=== PATIENT | female | born 1935 | race Caucasian/White ===

== ENCOUNTER 2018-05-02 16:27 | Inpatient (IN) | payer MEDICARE, BC ==
[~2018-05-02] VITALS: Ht 165.1 cm; Wt 98.9 kg
--- NOTE | ~2018-05-02 | PN ---
PATIENT:SUAD MENDEZ MEDICAL RECORD: [id number] LOCATION:TEE Pacheco112 ADMISSION DATE: 05/02/18 PROGRESS NOTE DATE OF SERVICE: 05/10/2018 SUBJECTIVE: The patient's case was discussed with staff. She has no new complaint. OBJECTIVE: The patient is in good behavioral control with limited insight about her condition. She generally tolerates her medicines well. ASSESSMENT: No change in diagnoses. PLAN: The patient is awaiting word from [facility] [place] care placement. Once the approval is received, she will be transitioned to [facility]. TRANSINT:[id number] Voice Confirmation ID: [id number] DOCUMENT ID: [id number] CATALINA STROUD MD at 1617 CC: [id number] DICTATION DATE: 05/10/18 1446 BEZEL CUTTER: 05/10/18 1534 ADM IN [place] [id number] [place] [id number]
--- NOTE | ~2018-05-02 | PN ---
PATIENT:SUAD MENDEZ MEDICAL RECORD: [id number] LOCATION:TEE Pacheco112 ADMISSION DATE: 05/02/18 PROGRESS NOTE DATE OF SERVICE: 05/16/2018 SUBJECTIVE: The patient's case was discussed with staff. She has no new complaint. OBJECTIVE: The patient is in good behavioral control with limited insight about her condition. She does tolerate her medicines well. ASSESSMENT: No change in diagnoses. PLAN: Current medicines have been reviewed and will be maintained. I anticipate the patient can be transitioned to [facility] as soon as they approve her and arrange transportation. Her long-term prognosis is guarded. TRANSINT:[id number] Voice Confirmation ID: [id number] DOCUMENT ID: [id number] CATALINA STROUD MD at 1012 CC: [id number] DICTATION DATE: 05/16/18 1345 FUR MACHINE OPERATOR: 05/16/18 1350 ADM IN [place] [id number] [place] [address]
--- NOTE | ~2018-05-02 | PN ---
PATIENT:SUAD MENDEZ MEDICAL RECORD: [id number] LOCATION:TEE Pacheco112 ADMISSION DATE: 05/02/18 PROGRESS NOTE DATE OF SERVICE: 05/16/2018 SUBJECTIVE: The patient's case was discussed with staff. She has no new complaint. OBJECTIVE: The patient is in good behavioral control with limited insight about her condition. She does tolerate her medicines well. Eye contact is fair. Concentration is fair. ASSESSMENT: No change in diagnoses. PLAN: Supportive and educational interventions were made. Long-term prognosis is guarded. TRANSINT:[id number] Voice Confirmation ID: [id number] DOCUMENT ID: [id number] CATALINA STROUD MD at 1012 CC: [id number] DICTATION DATE: 05/16/18 1336 SENIOR BI DEVELOPER: 05/16/18 1349 ADM IN [facility] [address] [place] [address]
--- NOTE | ~2018-05-02 | PN ---
PATIENT:SUAD MENDEZ MEDICAL RECORD: [id number] LOCATION:TEE FonsecaVamsi112 ADMISSION DATE: 05/02/18 PROGRESS NOTE DATE OF SERVICE: 05/18/2018 SUBJECTIVE: The patient's case was discussed with staff. She has no new complaint. OBJECTIVE: The patient is in good behavioral control with limited insight about her condition. She does tolerate her medicines well. ASSESSMENT: No change in diagnoses. PLAN: Current medicines have been reviewed and will be maintained. Long-term prognosis is guarded. Brief supportive and educational interventions were made. TRANSINT:[id number] Voice Confirmation ID: [id number] DOCUMENT ID: [id number] CATALINA STROUD MD at 1008 CC: [id number] DICTATION DATE: 05/18/18 1515 TEACHER EARLY CHILDHOOD DEVELOPMENT: 05/18/18 1545 ADM IN [place] [id number] [place] [address]
--- NOTE | ~2018-05-02 | PN ---
PATIENT:SUAD MENDEZ MEDICAL RECORD: [id number] LOCATION:TEE Morrell ADMISSION DATE: 05/02/18 PROGRESS NOTE DATE OF SERVICE: 05/07/2018 SUBJECTIVE: The patient's case was discussed with staff. She has no new complaint. OBJECTIVE: The patient is oriented almost completely. She is mildly mistaken about the date. She has been in good behavioral control. She was tested by Dr. Janee Sheridan and scored 17/30 on her dementia scale. This places her in the ejeismci-uk-girvebov range. She has some preservation of her verbal skills, which is causing her to appear higher functioning than she is. Certainly, she does have dementia. This was suspected on bedside exam, which is why Dr. Sheridan was tested. I have discussed the diagnosis with her. ASSESSMENT: Senile dementia of the Alzheimer's type. PLAN: The patient will be started on Aricept for its memory-enhancing properties. She is in need of 23-txwa-k-day supervision. Given her pulmonary disease and dementia, I would estimate that the detention is the least restrictive environment that can meet her needs. TRANSINT:[id number] Voice Confirmation ID: [id number] DOCUMENT ID: [id number] CATALINA STROUD MD at 1452 CC: [id number] DICTATION DATE: 05/07/18 1457 MANAGER SUPPLY: 05/07/18 1547 ADM IN [place] [id number] [place] [address]
--- NOTE | ~2018-05-02 | PSY ---
PATIENT NAME:SUAD MENDEZ MEDICAL RECORD: [id number] : 35 LOCATION:TEE Morrell4 ADMISSION DATE: 05/02/18 ACCOUNT: [id number] PSYCHIATRIC EVALUATION DATE OF EVALUATION: 05/03/18 IDENTIFYING DATA: The patient is 83 years old and she is referred to us by a [facility] in [place]. The patient apparently has been a resident there for some time. CHIEF COMPLAINT: None. HISTORY OF PRESENT ILLNESS: The patient has a great deal of anxiety. She says that she cannot go into her room. She thinks she is going to . She has become agitated and has been throwing herself on the floor. According to the staff, they say it is deliberate. The patient strongly denies this. The [facility] physician wanted her admitted here and he is known to this unit and is familiar with what we do, so he must certainly think it is appropriate. She denies that she is depressed, but she endorses numerous neurovegetative depressive symptoms. She denies that she has any memory impairment, but does have some mild abnormalities noted on her mental status examination. PAST MEDICAL HISTORY: Significant for neuropathy, hypertension, hypercholesterolemia, COPD. PAST PSYCHIATRIC HISTORY: Significant for long-standing problems with anxiety and depression, for which the patient is taking a large amount of benzodiazepine. FAMILY HISTORY: Negative for psychiatric disease by the patient's report. ALLERGIES: No known drug allergies. CURRENT MEDICATIONS: Include Senokot, Nexium, sodium chloride tablets, Lasix, aspirin, Zocor, Cozaar, melatonin, Carafate, Zofran, Antivert, Ultram, Ambien, Zoloft, Neurontin, Voltaren, Valium, albuterol updrafts, Levsin, and Ventolin. SOCIAL HISTORY: The patient is . She has 2 adult children. One of her grandchildren was killed at age 12. She denies history of drug, alcohol, or tobacco use. She was a homemaker and a housewife. She functioned reasonably well socially and occupationally. She currently lives in a [facility] in [place]. MENTAL STATUS EXAMINATION: The patient is awake, alert, and oriented to person and place. She does not know why she is here and she is mistaken about the date, but she says the date is 1819 instead of 2018. She also thinks the month is March when it is actually May 03. She otherwise has a mood that is near euthymic, an affect that is generally appropriate, and thought processes that are circumstantial. Her memory, concentration, and abstraction abilities are mildly impaired and she denies any active intent to harm herself or others as well as overt psychotic symptoms. ASSETS: Stable living environment. LIABILITIES: Lack of insight about her condition. DIAGNOSTIC IMPRESSION: AXIS I: Major depression, moderate severity, without psychotic features. Generalized anxiety disorder. Probable early stages dementia, perhaps moderate stages. AXIS II: Deferred. AXIS III: Hypercholesterolemia, hypertension, COPD. AXIS IV: Moderate stressors. AXIS V: Global assessment of functioning is 38. PLAN: At this time, the patient is admitted to the hospital for comprehensive medical, psychological, and social evaluation. She will be treated with both mood stabilizing and memory enhancing medications. Her long-term prognosis is guarded. I anticipate she can return to the [facility] in [place] once medically stable. TRANSINT:[id number] Voice Confirmation ID: [id number] DOCUMENT ID: [id number] CATALINA STROUD MD at 1212 CC: [id number] DICTATION DATE: 05/03/18 1256 CONTRACT ENGINEER: 05/03/18 1319 [facility] IN [facility] [address] [place] [id number]
--- NOTE | ~2018-05-02 | PN ---
PATIENT:SUAD MENDEZ MEDICAL RECORD: [id number] LOCATION:TEE Morrell ADMISSION DATE: 05/02/18 PROGRESS NOTE DATE OF SERVICE: 05/11/2018 SUBJECTIVE: No new complaint is offered. OBJECTIVE: The patient has been doing reasonably well. At the present time, staff is waiting on approval from [facility] and [facility] prior to transfer back to [facility]. On exam, the patient's mood is pleasant. She makes fairly good eye contact. Affect is somewhat shallow. Speech is simple in form and content. Content of thought is negative for overt psychosis. No suicidal ideation. Sensorium shows no change. ASSESSMENT: No change in diagnosis. PLAN: 1. Continue all current medications. 2. Continue supportive therapy. TRANSINT:[id number] Voice Confirmation ID: [id number] DOCUMENT ID: [id number] VON DOBBINS III, MD at 1959 CC: [id number] DICTATION DATE: 05/11/18 111 PIPE FOREMAN: 05/11/18 1119 ADM IN [place] [id number] [place] [id number]
--- NOTE | ~2018-05-02 | PN ---
PATIENT:SUAD MENDEZ MEDICAL RECORD: [id number] LOCATION:TEE Pacheco112 ADMISSION DATE: 05/02/18 PROGRESS NOTE DATE OF SERVICE: 05/21/2018 SUBJECTIVE: The patient's case was discussed with staff. She has no new complaint. OBJECTIVE: The patient is in good behavioral control with limited insight about her condition. She tolerates her medicines well. ASSESSMENT: No change in diagnoses. PLAN: The patient will be transitioned out of the hospital today. She is going to go to [facility]. Her long-term prognosis is guarded. Brief supportive and educational interventions were made. TRANSINT:[id number] Voice Confirmation ID: [id number] DOCUMENT ID: [id number] CATALINA STROUD MD at 1323 CC: [id number] DICTATION DATE: 05/21/18 1405 MARKET RESEARCH INTERVIEWER: 05/21/18 1421 DIS IN 05/21/18 [place] [id number] [place] [address]
--- NOTE | ~2018-05-02 | PN ---
PATIENT:SUAD MENDEZ MEDICAL RECORD: [id number] LOCATION:TEE Pacheco112 ADMISSION DATE: 05/02/18 PROGRESS NOTE DATE OF SERVICE: 05/09/2018 SUBJECTIVE: The patient's case was discussed with staff. She has no new complaint. OBJECTIVE: The patient is in good behavioral control with limited insight about her condition. She has no thoughts of harming herself or others. ASSESSMENT: No change in diagnoses. PLAN: Current medicines and therapies have been reviewed and will be maintained. Her long-term prognosis is guarded. TRANSINT:[id number] Voice Confirmation ID: [id number] DOCUMENT ID: [id number] CATALINA STROUD MD at 1438 CC: [id number] DICTATION DATE: 05/09/18 1358 PAYROLL ACCOUNTANT: 05/09/18 1417 ADM IN [place] [id number] [place] [id number]
--- NOTE | ~2018-05-02 | PN ---
PATIENT:SUAD MENDEZ MEDICAL RECORD: [id number] LOCATION:TEE Pacheco112 ADMISSION DATE: 05/02/18 PROGRESS NOTE DATE OF SERVICE: 05/05/2018 SUBJECTIVE: The patient's case was discussed with staff. She has no new complaint. OBJECTIVE: The patient has been in good behavioral control. She has had some discomfort, for which she has required tramadol. She comes to us taking a large dose of Valium that she has been on for a long time. When I discussed changing that or reducing it, she becomes very upset saying that she has had the medicine for a very long time and that she must have it. She has had some recent trouble with anxiety indicating it is not really working, but that seems to have changed and she is more comfortable now. I do not approve of what she is taking, but I am going to let it go for the time being based on concerns that she is fearful and frightened, that something bad will happen if it is changed or reduced, and even though it is far from ideal, the patient is in a structured environment where she has no free access to the medication. TRANSINT:[id number] Voice Confirmation ID: [id number] DOCUMENT ID: [id number] CATALINA STROUD MD at 1445 CC: [id number] DICTATION DATE: 05/05/18 0959 STATE ARCHIVIST: 05/05/18 1155 ADM IN [place] [id number] [place] [address]
--- NOTE | ~2018-05-02 | PN ---
PATIENT:SUAD MENDEZ MEDICAL RECORD: [id number] LOCATION:TEE Pacheco112 ADMISSION DATE: 05/02/18 PROGRESS NOTE DATE OF SERVICE: 05/14/2018 SUBJECTIVE: The patient's case was discussed with staff. She has no new complaint. OBJECTIVE: The patient is in good behavioral control with limited insight about her condition. She tolerates her medicines well. ASSESSMENT: No change in diagnoses. PLAN: Supportive and educational interventions were made. The patient's medications have been reviewed. I am going to increase the dose of her Aricept to 10 mg at bedtime. TRANSINT:[id number] Voice Confirmation ID: [id number] DOCUMENT ID: [id number] CATALINA STROUD MD at 1501 CC: [id number] DICTATION DATE: 05/14/18 1625 RUBBER GOODS SUPERVISOR: 05/14/18 1846 ADM IN [place] [id number] [place] [id number]
--- NOTE | ~2018-05-02 | DS ---
PATIENT:SUAD MENDEZ :35 MEDICAL RECORD: [id number] DISCHARGE SUMMARY ADMISSION DATE: 05/02/18 DISCHARGE DATE: 05/21/18 PSYCHIATRIC DISCHARGE SUMMARY IDENTIFYING DATA: The patient is 83 years old and she was admitted to the hospital on a voluntary basis because of agitation. She would not go into her room and was nervous. She began throwing herself on the floor and acting in a disruptive way. The staff felt that she was trying to hurt herself, but she denied being depressed even though she endorsed many vegetative depressive symptoms and also showed evidence of significant cognitive impairment. HOSPITAL COURSE: The patient was admitted to the hospital and fully evaluated from both a medical, psychological, and social standpoint. She was treated with both mood stabilizing and memory enhancing medications. She did show improvement with the addition of the antidepressant medication. She was found to clearly be impaired cognitively as evidenced by neuropsych testing, but the results placed her on the border between mild and moderate. DISCHARGE DIAGNOSES: AXIS I: 1. Major depression, moderate severity without psychotic features. 2. Generalized anxiety disorder. 3. Senile dementia of the Alzheimer's type. AXIS II: Deferred. AXIS III: Hypercholesterolemia, hypertension and chronic obstructive pulmonary disease. AXIS IV: Moderate stressors. AXIS V: Global assessment of functioning is 45. PLAN: At the time of discharge, the patient was in good behavioral control and was returned to the custodial. The disruptive behaviors were no longer present. She will be monitored for clinical changes. Her long-term prognosis is guarded. TRANSINT:[id number] Voice Confirmation ID: [id number] DOCUMENT ID: [id number] CATALINA STROUD MD at 1118 CC: [id number] DICTATION DATE: 05/29/18 1433 PIANO CASE AND BENCH ASSEMBLER: 05/29/18 1455 DIS IN 05/21/18 [place] [id number] [place] [address]
--- NOTE | ~2018-05-02 | PN ---
PATIENT:SUAD MENDEZ MEDICAL RECORD: [id number] LOCATION:TEE Morrell ADMISSION DATE: 05/02/18 PROGRESS NOTE DATE OF SERVICE: 05/20/2018 SUBJECTIVE: The patient's case was discussed with staff. She has no new complaint. OBJECTIVE: The patient is in good behavioral control with limited insight about her condition. She generally tolerates her medicines well. Eye contact is fair. Concentration is fair. ASSESSMENT: No change in diagnoses. PLAN: The patient is tolerating her medicines well and I anticipate that she can be transitioned out of the hospital tomorrow morning. TRANSINT:[id number] Voice Confirmation ID: [id number] DOCUMENT ID: [id number] CATALINA STROUD MD at 1354 CC: [id number] DICTATION DATE: 05/20/18 1101 CHIEF CONTRACT OFFICER: 05/20/18 1337 ADM IN [facility] [address] [place] [id number]
--- NOTE | ~2018-05-02 | PN ---
PATIENT:SUAD MENDEZ MEDICAL RECORD: [id number] LOCATION:TEE Morrell ADMISSION DATE: 05/02/18 PROGRESS NOTE DATE OF SERVICE: 05/04/2018 SUBJECTIVE: The patient's case was discussed with staff. She has no new complaint. OBJECTIVE: The patient is in good behavioral control. She is reporting some anxiety and denies that she is depressed, but then goes on to endorse numerous neurovegetative depressive symptoms. She has no thoughts of harming herself or others. ASSESSMENT: No change in diagnoses. PLAN: The patient will have her Ambien discontinued secondary to concerns about the confusion it causes in the elderly and the increased risk of falling. At this point, I am just going to watch her sleep and wake patterns. So far, they have been perfectly normal. I have every expectation that she will tolerate current medication changes well. I am a little concerned about the hyponatremia and will leave that to her mixer crane operator to address. TRANSINT:[id number] Voice Confirmation ID: [id number] DOCUMENT ID: [id number] CATALINA STROUD MD at 0949 CC: [id number] DICTATION DATE: 05/04/18 1228 ANTHROPOLOGY DEPARTMENT CHAIR: 05/04/18 1233 ADM IN [place] [id number] [place] [address]
--- NOTE | ~2018-05-02 | PN ---
PATIENT:SUAD MENDEZ MEDICAL RECORD: [id number] LOCATION:TEE Pacheco112 ADMISSION DATE: 05/02/18 PROGRESS NOTE DATE OF SERVICE: 05/17/2018 SUBJECTIVE: The patient's case was discussed with staff. She has no new complaint. OBJECTIVE: The patient is in good behavioral control with limited insight about her condition. She generally tolerates her medicines well. Eye contact is poor. ASSESSMENT: No change in diagnoses. PLAN: Brief supportive and educational interventions were made. Senior Living prognosis is guarded. TRANSINT:[id number] Voice Confirmation ID: [id number] DOCUMENT ID: [id number] CATALINA STROUD MD at 1450 CC: [id number] DICTATION DATE: 05/17/18 1026 DELIVERY DRIVER/CUSTOMER SERVICE: 05/17/18 1059 ADM IN [place] [id number] [place] [address]
--- NOTE | ~2018-05-02 | PN ---
PATIENT:SUAD MENDEZ MEDICAL RECORD: [id number] LOCATION:TEE Pacheco112 ADMISSION DATE: 05/02/18 PROGRESS NOTE DATE OF SERVICE: 05/15/2018 SUBJECTIVE: The patient's case was discussed with staff. She has no new complaint. OBJECTIVE: The patient denies intent to harm herself or others. She generally tolerates her medicines well. Eye contact is poor. Concentration is fair. ASSESSMENT: No change in diagnoses. PLAN: Current medicines have been reviewed and will be maintained. Brief supportive and educational interventions were made. At this point, we are waiting on the office of long-term care to give approval for [place] [facility] placement and I anticipate that will be forthcoming soon. TRANSINT:[id number] Voice Confirmation ID: [id number] DOCUMENT ID: [id number] CATALINA STROUD MD at 1319 CC: [id number] DICTATION DATE: 05/15/18 1509 MACHINE PACKAGER: 05/15/18 1515 ADM IN [place] [id number] [place] [id number]
--- NOTE | ~2018-05-02 | PN ---
PATIENT:SUAD MENDEZ MEDICAL RECORD: [id number] LOCATION:TEE Morrell ADMISSION DATE: 05/02/18 PROGRESS NOTE DATE OF SERVICE: 05/08/2018 SUBJECTIVE: The patient's case was discussed with staff. She has no new complaint. OBJECTIVE: The patient denies that she would seek to harm herself or others. She generally tolerates her medicines well. She has been started on Aricept for its memory enhancing properties. She has not been behaviorally disruptive in any significant way. She currently is taking 150 mg of Zoloft daily along with 20 mg of Valium. Discussed the possibility of reducing that medication very much to her unhappiness. ASSESSMENT: No change in diagnoses. PLAN: Current medicines have been reviewed and will be maintained. Supportive and educational interventions were made. TRANSINT:[id number] Voice Confirmation ID: [id number] DOCUMENT ID: [id number] CATALINA STROUD MD at 1339 CC: [id number] DICTATION DATE: 05/08/18 1502 AMMONIA REFRIGERATION WORKER: 05/08/18 1510 ADM IN [facility] [address] [place] [address]
--- NOTE | ~2018-05-02 | PN ---
PATIENT:SUAD MENDEZ MEDICAL RECORD: [id number] LOCATION:TEE Pacheco112 ADMISSION DATE: 05/02/18 PROGRESS NOTE DATE OF SERVICE: 05/19/2018 SUBJECTIVE: The patient's case was discussed with staff. She has no new complaint. OBJECTIVE: The patient denies intent to harm herself or others. She tolerates her medicines well. Eye contact is fair. Concentration is fair. ASSESSMENT: No change in diagnoses. PLAN: The patient will be transitioned out of the hospital soon. She has limited insight about her condition. She will be maintained on current medicines, which I have reviewed. TRANSINT:[id number] Voice Confirmation ID: [id number] DOCUMENT ID: [id number] CATALINA STROUD MD at 1034 CC: [id number] DICTATION DATE: 05/19/18 1414 SOUP MIXER: 05/19/18 2143 ADM IN [place] [address] [place] [address]
[2018-05-02 21:49] LABS: APPEARANCE CLEAR (CLEAR); BILIRUBIN NEGATIVE (NEGATIVE); COLOR YELLOW (YELLOW); GLUCOSE NEGATIVE (NEGATIVE); KETONE NEGATIVE (NEGATIVE); NITRITE NEGATIVE (NEGATIVE); PROTEIN NEGATIVE (NEGATIVE); SPECIFIC GRAVITY 1.005 (1.005-1.020); UROBILINOGEN NORMAL (NORMAL)
[2018-05-03 08:30] VITALS: BP 144/80
[2018-05-03 08:38] LABS: BASOPHILS 0.1 % (0-2); HEMATOCRIT 27.8 % (36.0-48.0); HEMOGLOBIN 8.6 g/dL (12-16); IMMATURE GRANULOCYTES 0.3 % (0-5); MCH 23.7 pg (26.0-34.0); MCHC 30.9 g/dL (31.0-37.0); MCV 76.6 fL (80.0-100.0); MEAN PLATELET VOLUME 8.5 fL (7.4-10.4); MONOCYTES 5.2 % (2-11); NEUTROPHILS 73.4 % (40-80); PLATELET COUNT 678 10x3/uL (130-400); RBC 3.63 10x6/uL (4.00-5.40); RDW 15.9 % (11.5-14.5); WBC 11.5 10x3/uL (4.8-10.8)
[2018-05-03 08:56] LABS: ALBUMIN 3.4 g/dL (3.4-5.0); ANION GAP 8.9 mmol/L (8-16); BILIRUBIN - TOTAL 0.36 mg/dL (0.2-1.3); CALCIUM 8.9 mg/dL (8.5-10.1); CARBON DIOXIDE 31.8 mmol/L (21.0-32.0); CHOL - HDL RATIO 3.5 ratio (2.3-4.1); CREATININE - SERUM 0.8 mg/dL (0.6-1.3); POTASSIUM - SERUM 3.7 mmol/L (3.5-5.1); PROTEIN - SERUM 6.5 g/dL (6.4-8.2); THYROID STIMULATING HORMONE 2.47 uIU/mL (0.36-3.74)
[2018-05-03 10:23] VITALS: BP 120/71; BMI 36.3
[2018-05-03] MEDS ORDERED: SECTRAL400 MG PO (10:52)
[2018-05-03] MEDS ORDERED: VALIUM5 MG PO (10:53)
[2018-05-03] MEDS ORDERED: BAYER CHEWABLE81 MG PO (10:53)
[2018-05-03] MEDS ORDERED: NEXIUM20 MG PO (10:54)
[2018-05-03] MEDS ORDERED: DICLOFENAC SODI50 MG PO (10:54)
[2018-05-03] MEDS ORDERED: COZAAR25 MG PO (10:55)
[2018-05-03] MEDS ORDERED: NEURONTIN 300300 MG PO (10:55)
[2018-05-03] MEDS ORDERED: FUROSEMIDE40 MG PO (10:55)
[2018-05-03] MEDS ORDERED: MELATONIN 3 MG1 TAB PO (10:56)
[2018-05-03] MEDS ORDERED: MECLIZINE HCL25 MG PO ×2 (10:56→11:20)
[2018-05-03] MEDS ORDERED: METOLAZONE2.5 MG PO (10:58)
[2018-05-03] MEDS ORDERED: MILK OF MAGNESI30 ML PO (10:59)
[2018-05-03] MEDS ORDERED: OSCIMIN0.125 M1 PO (11:02)
[2018-05-03] MEDS ORDERED: GLYCOLAX527 GM PO (11:03)
[2018-05-03] MEDS ORDERED: K-DUR20 MEQ PO (11:04)
[2018-05-03] MEDS ORDERED: ZOLOFT25 MG PO (11:05)
[2018-05-03] MEDS ORDERED: SENNA LAXATIVE8.6 MG PO (11:05)
[2018-05-03] MEDS ORDERED: ZOCOR40 MG PO (11:07)
[2018-05-03] MEDS ORDERED: CARAFATE1 G PO (11:07)
[2018-05-03] MEDS ORDERED: THERMOTABS 1 GM1 GM PO (11:07)
[2018-05-03] MEDS ORDERED: AMBIEN5 MG PO (11:08)
[2018-05-03] MEDS ORDERED: ACETAMINOPHEN325 MG PO (11:09)
[2018-05-03] MEDS ORDERED: [UNRECOGNIZED DRUG - OTHER] TOPICAL (11:12)
[2018-05-03] MEDS ORDERED: IPRAT-ALBUT 0.5-3 ML UPD (11:13)
[2018-05-03] MEDS ORDERED: IMODIUM2 MG PO (11:14)
[2018-05-03] MEDS ORDERED: ZOFRAN4 MG PO (11:21)
[2018-05-03] MEDS ORDERED: LEVSIN/ANASP0.125 MG PO (11:35)
[2018-05-03] MEDS ORDERED: PREPARATION H O57 GM TOPICAL (11:36)
[2018-05-03] MEDS ORDERED: PROAIR HFA8.5 GM INH (11:38)
[2018-05-03 11:39] VITALS: BMI 36.3
[2018-05-03] MEDS ORDERED: GUAIFENESI100 MG/5 M PO (11:40)
[2018-05-03] MEDS ORDERED: ULTRAM50 MG PO (11:40)
[2018-05-03] MEDS ORDERED: TUMS500 MG PO (11:42)
[2018-05-03] MEDS ORDERED: ONDANSETRON4 MG/2 M3 IM (11:44)
[2018-05-03 15:47] VITALS: Ht 165.1 cm; Wt 98.9 kg
[2018-05-03 21:13] VITALS: BP 141/80
[2018-05-04 06:14] LABS: RAPID PLASMA REAGIN Non Reactive (Non Reactive)
[2018-05-04 07:27] LABS: VITAMIN D 25 HYDROXY 26.8 ng/mL (30.0-100.0)
[2018-05-04 08:30] VITALS: BP 154/72
[2018-05-04 09:15] LABS: FOLATE (FOLIC ACID) - SERUM >20.0 ng/mL (>3.0)
[2018-05-04 20:02] VITALS: BP 117/62
[2018-05-05 08:16] VITALS: BP 122/58
[2018-05-05 10:19] VITALS: BP 122/58
[2018-05-05 19:58] VITALS: BP 108/63
[2018-05-06 07:00] VITALS: BP 141/74
[2018-05-06 20:26] VITALS: BP 110/49
[2018-05-07 07:00] VITALS: BP 116/72
[2018-05-07 19:58] VITALS: BP 116/65
[2018-05-08 10:03] VITALS: BP 116/73
[2018-05-09 00:11] VITALS: BP 116/51
[2018-05-09 08:00] VITALS: BP 114/63
[2018-05-09 20:00] VITALS: BP 125/77
[2018-05-10 09:39] VITALS: BP 124/68
[2018-05-10 22:05] VITALS: BP 104/45
[2018-05-11 10:47] VITALS: BP 123/64
[2018-05-11 21:09] VITALS: BP 119/83
[2018-05-12 11:14] VITALS: BP 108/82
[2018-05-12 19:32] VITALS: BP 124/73
[2018-05-13 07:00] VITALS: BP 138/78
[2018-05-13 19:20] VITALS: BP 110/69
[2018-05-14 07:00] VITALS: BP 112/66
[2018-05-14 20:58] VITALS: BP 96/44
[2018-05-15 10:25] VITALS: BP 116/63
[2018-05-15 19:36] VITALS: BP 112/40
[2018-05-16 10:56] VITALS: BP 114/71
[2018-05-16 20:25] VITALS: BP 118/72
[2018-05-17 09:45] VITALS: BP 113/61
[2018-05-17 19:56] VITALS: BP 186/124
[2018-05-18 06:13] VITALS: BP 106/69
[2018-05-18 09:42] VITALS: BP 113/59
[2018-05-18 11:24] LABS: BASOPHILS 0.3 % (0-2); EOSINOPHILS 9.2 % (0-7); HEMATOCRIT 25.9 % (36.0-48.0); HEMOGLOBIN 7.8 g/dL (12-16); IMMATURE GRANULOCYTES 0.2 % (0-5); LYMPHOCYTES 20.2 % (15-50); MCHC 30.1 g/dL (31.0-37.0); MCV 76.4 fL (80.0-100.0); MEAN PLATELET VOLUME 8.1 fL (7.4-10.4); MONOCYTES 7.5 % (2-11); NEUTROPHILS 62.6 % (40-80); PLATELET COUNT 570 10x3/uL (130-400); RBC 3.39 10x6/uL (4.00-5.40); RDW 16.2 % (11.5-14.5); WBC 11.8 10x3/uL (4.8-10.8)
[2018-05-18 11:44] LABS: ANION GAP 6.6 mmol/L (8-16); CALCIUM 8.7 mg/dL (8.5-10.1); CARBON DIOXIDE 37.8 mmol/L (21.0-32.0); CREATININE - SERUM 0.9 mg/dL (0.6-1.3); POTASSIUM - SERUM 3.4 mmol/L (3.5-5.1)
[2018-05-18 19:39] VITALS: BP 117/60
[2018-05-19 09:56] VITALS: BP 117/72
[2018-05-19 20:00] VITALS: BP 112/64
[2018-05-20 10:13] VITALS: BP 124/87
[2018-05-20] MEDS ORDERED: ARICEPT10 MG PO (11:03)
[2018-05-20] MEDS ORDERED: Zaroxolyn PO (11:04)
[2018-05-20 20:41] VITALS: BP 141/45
[2018-05-21 08:00] VITALS: BP 111/72
== END 2018-05-21 14:30 | DRG 885 ==
LOC: D.PSYCH 16:27
PROVIDERS: Family Medicine; Psychiatry & Neurology Psychiatry
DX: F32.1 Major depressive disorder, single episode, moderate (principal); E87.1 Hypo-osmolality and hyponatremia; F03.91 Unspecified dementia, unspecified severity, with behavioral disturbance; F41.1 Generalized anxiety disorder; I10 Essential (primary) hypertension; G62.9 Polyneuropathy, unspecified; G89.29 Other chronic pain; M19.90 Unspecified osteoarthritis, unspecified site; E55.9 Vitamin D deficiency, unspecified; J44.9 Chronic obstructive pulmonary disease, unspecified; K59.00 Constipation, unspecified; E78.5 Hyperlipidemia, unspecified; G47.00 Insomnia, unspecified